=== PATIENT | female | born 1975 | race Caucasian/White ===

== ENCOUNTER 2017-02-05 10:45 | Emergency (ER) | payer BC ==
[~2017-02-05] VITALS: Ht 160 cm; Wt 90.0 kg
[2017-02-05 10:46] VITALS: BP 112/59; PULSE 76; RESP 16; TEMP 98.7; O2SAT 97
[2017-02-05] MEDS ORDERED: AUGM875T3 PO (11:13)
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
== END 2017-02-05 11:52 | disposition home or self-care (01) ==
LOC: PHEFT 10:45
DX: J03.90 Acute tonsillitis, unspecified (principal)
CPT/HCPCS: 99283